=== PATIENT | female | born 1940 | race Caucasian/White ===

== ENCOUNTER 2024-08-06 11:01 | Emergency (ER) | payer OTHER, SELFPAY ==
[2024-08-06 11:05] VITALS: BP 115/96
[2024-08-06 11:29] LABS: COVID-19 Antigen Negative (Negative)
--- NOTE | 2024-08-06 11:55 | ED.GENMED ---
History of Present Illness
General
Chief Complaint: Cold/Flu/URI Symptoms
Source: patient
Exam Limitations: none
Time Seen by Provider: 08/06/24 11:54
Nursing documentation reviewed up to this point in time: agreed with
History of Present Illness
History of Present Illness:
84 yr old female brought to the ED by EMS for Evaluation. Son at bedside who reports patient lives alone however this morning when he talked to her patient was confused. Triage note mentions that family was concerned the patient was
hallucinating. Son reports she was not hallucinating she simply was confused and did not sound like herself. Son reports Pt functions well normally on her own. He reports pt started not feeling herself yesterday.
Patient presents to the ER awake alert she is aware that she started feeling not well yesterday. She described cold symptoms and believes she had a fever last night although she did not take her temperature. She admits to feeling a little confused
when she had a fever. She is awake alert she is not confused presently. She denies any shortness of breath. Upon my exam patient is asking to go home. She c/o of nasal congestion. She has mild cough denies any shortness of breath.
Review of Systems
Review of Systems
Allergies reviewed?: Yes
All Other Systems: ROS reviewed and negative except as documented in HPI and ROS
Constitutional: Reports fever
Respiratory: Reports cough
Cardiac: Reports no symptoms
ABD/GI: Reports no symptoms
: Reports no symptoms
Musculoskeletal: Reports no symptoms
Skin: Reports no symptoms
Neurological: Reports no symptoms
Psychiatric: Reports no symptoms
Phy Exam
General Physical Exam
General Presentation: no apparent distress
General age: appears stated age
General Skin: warm and dry
General Habitus: normal
General Mental: alert
General Hydration: appears well hydrated
Eye Exam
Eye Exam: PERRL and EOMI
Cardiovascular Exam
Cardiovascular Exam: regular rate/rhythm, no murmur and normal peripheral pulses
Pulmonary Exam
Pulmonary Exam: lungs clear and no respiratory distress
Gastrointestinal Exam
Gastrointestinal Exam: non tender and soft
Neurological Exam
Neurological Exam: alert, oriented x3, no motor deficits and normal reflexs
Musculoskeletal Exam
Musculoskeletal Exam: full ROM
Skin Exam
Skin Exam: normal color and warm/dry
Psychiatric Exam
Psychiatric Exam: normal mood/affect
Course
Orders/Labs/Results
Orders:
Orders
08/06/24 11:08
COVID-19 Antigen Urgent
Source: Nasal Swab
Influenza A+B Rapid Molecular Urgent
UMA Source: Nasal Swab
Specimen Description:
08/06/24 11:11
Electrocardiogram (*1) Urgent
Reason for Study: Shortness of Breath
EKG- Treatment ONCE
CXR2 [CR Chest - 2 Views ] Urgent
Comment:
Reason For Exam: cough
08/06/24 12:00
Cardiac Monitoring- Treatment ONCE
IV Insert/Care/Rem.- Treatment PRN
08/06/24 12:21
Complete Blood Count/With Diff Urgent
Comprehensive Metabolic Panel Urgent
08/06/24 13:19
Oseltamivir Phosphate [Tamiflu] 75 mg PO NOW STA
Abnormal Lab Results
08/06/24
12:21
RBC 3.90 L 10^6/uL
(4.20-5.40)
Hct 36.5 L %
(37.0-47.0)
MCH 31.5 H pg
(27.0-31.0)
Absolute Lymphs (auto) 0.8 L 10^3/uL
(1.2-3.4)
Neutrophils % 81.3 H %
(42.2-75.2)
Lymphocytes % 11.1 L %
(20.5-51.1)
BUN 22 H mg/dl
(7-17)
Creatinine 1.1 H mg/dL
(0.6-1.0)
Glucose 106 H mg/dl
(70-99)
AST 41 H U/L
(14-36)
08/06/24 12:21
08/06/24 12:21
Vital Signs
Initial and Last Documented VS:
Initial Vital Signs
Temp Pulse Resp BP Pulse Ox
99.3 F 83 18 115/96 96
08/06/24 11:05 08/06/24 11:05 08/06/24 11:05 08/06/24 11:05 08/06/24 11:05
Last Documented Vital Signs
Temp Pulse Resp BP Pulse Ox
99.3 F 75 24 138/57 98
08/06/24 11:05 08/06/24 13:30 08/06/24 13:30 08/06/24 13:00 08/06/24 13:30
Client Services Administrator consulted with Physician
Client Services Administrator consulted with physician?: Yes
Name of Physician Consulted: Thuy
MDM/Problems Addressed
MDM/Problems Addressed:
Patient is an 84-year-old female who was brought to the ER for evaluation. Family was concerned the patient seemed a little confused last night. Family reports he started not feeling well yesterday.
Patient however arrives awake alert she is aware that she felt a little confused when she reports she had a fever. She has since taken Tylenol. She complains about nasal congestion however feels well after go home. Patient presented awake alert
no acute distress no neurological deficits lungs clear not hypoxic temp is 99.3. White count normal hemoglobin stable at 12.3 creatinine 1.1. Patient is negative for COVID however flu positive negative pneumonia. Patient lives close to her son
who will be able to closely monitor her. Patient feels well after go home and is nontoxic she is not confused here. Stable for discharge home will give Tamiflu 30 mg twice daily due to creatinine clearance. d/c supportive care.
*Pulse Oximetry
Patient hypoxic: no
*EKG
Interpreted by ED Provider?: Yes
Interpretation: normal
Heart Rate: 86
Rate: normal
Rhythm: sinus
Ischemia: no ischemia
*Critical Care Note
Total Time (30-74mins, 75-104mins- exclusive of procedures): Not Applicable
ED Attending Note
-
Portions of this chart may have been created with voice recognition software.� Occasional wrong word or��sound alike� substitutions may have occurred due to the inherent limitations of voice recognition software.
Discharge Plan
Departure
Patient Disposition: Home (Routine Discharge)
Date of Disposition: 08/06/24
Time of Disposition: 13:48
Patient with high blood pressure during this ER visit?: Yes
Condition: Fair
Covid-19: Not Applicable
Discharge Problem:
Influenza A
Instructions: Flu in adults - Discharge instructions
Prescriptions:
New
oseltamivir [Tamiflu] 30 mg capsule
30 mg PO BID 5 Days Qty: 10 0RF
No Action
cilostazol 100 mg Tablet
100 mg PO BID
atenolol 100 mg Tablet
100 mg PO BID
simvastatin 10 mg Tablet
10 mg PO DAILY
clopidogrel 75 mg Tablet
75 mg PO DAILY
sertraline 25 mg Tablet
25 mg PO DAILY
Activity Restrictions/Additional Instructions:
As discussed be sure to stay well-hydrated and drink plenty of fluids. You may take Tylenol as needed for fever chills body aches. You are given 1 dose of Tamiflu 75 mg however a prescription for Tamiflu was sent to your pharmacy to take as
directed 30 mg twice a day for the next 5 days.
Follow-up with your family doctor in next several days and return if any worsening of symptoms.
Interventions
Interventions:
*Risk Screen - Suicide Last Done: 08/06/24 11:10
*General Assessment Last Done: 08/06/24 11:10
*Neglect/Abuse Screening Last Done: 08/06/24 11:10
ED- Fall Risk Assessment Last Done: 08/06/24 12:20
*ED COVID-19 Vaccine History Last Done: 08/06/24 11:10
*Nursing Disposition Last Done: 08/06/24 14:00
ED- Pulmonary Assessment Last Done: 08/06/24 12:20
Discharge Date and Time
Discharge Date/Time: 08/06/24 14:00
Print Language: NEPALESE
[2024-08-06 12:20] VITALS: BMI 29.5
[2024-08-06 12:21] VITALS: BP 144/61
[2024-08-06 12:32] LABS: % Basophils 0.4 % (0-2); % Immature Granulocytes 0.4 % (0-0.5); % Lymphocytes 11.1 % (20.5-51.1); % Monocytes 6.8 % (1.7-9.3); % Neutrophils 81.3 % (42.2-75.2); Absolute Lymphocytes 0.8 10^3/uL (1.2-3.4); Absolute Monocytes 0.5 10^3/uL (0.1-0.6); Absolute Neutrophils 6.1 10^3/uL (1.4-6.5); Hematocrit 36.5 % (37.0-47.0); Hemoglobin 12.3 g/dL (12.0-16.0); Mean Corp Hgb Conc. 33.7 g/dL (33.0-37.0); Mean Corpuscular Hgb 31.5 pg (27.0-31.0); Mean Corpuscular Volume 93.6 fL (81.0-99.0); Mean Platelet Volume 9.1 fL (7.4-10.4); Nucleated Red Blood Cells % 0 %; Platelet Count 264 10^3/uL (130-400); Red Cell Dist. Width 12.9 % (11.5-14.5); White Blood Cell Count 7.5 10^3/uL (4.8-10.8)
[2024-08-06 12:52] LABS: ALT (SGPT) 33 U/L (0-35); AST (SGOT) 41 U/L (14-36); Albumin 3.8 g/dl (3.5-5.0); Alkaline Phosphatase 68 U/L (38-126); Blood Urea Nitrogen 22 mg/dl (7-17); Calcium 8.4 mg/dl (8.4-10.2); Carbon Dioxide 25 mmol/L (22-30); Chloride 101 mmol/L (98-107); Estimated Creatinine Clearance 31 ml/min; Glucose 106 mg/dl (70-99); Potassium 3.5 mmol/L (3.5-5.1); Sodium 136 mmol/L (135-145); Total Bilirubin 0.5 mg/dl (0.2-1.3); Total Protein 6.5 g/dl (6.3-8.2); eGFR 49.24
[2024-08-06 13:00] VITALS: BP 138/57
[2024-08-06] MEDS: TAMIFLU 75 MG PO (13:30)
== END 2024-08-06 14:00 | disposition home or self-care (01) ==
LOC: EMR 11:01
PROVIDERS: Emergency Medicine; Nurse Practitioner; EMERGENCY PHYSICIAN Emergency Medicine; FAMILY PHYSICIAN Family Medicine
DX: J10.1 Influenza due to other identified influenza virus with other respiratory manifestations (principal); Z11.52 Encounter for screening for COVID-19; R03.0 Elevated blood-pressure reading, without diagnosis of hypertension
CPT/HCPCS: 99285; 71046; 80053; 85025; 87502; 87811; 93005

== ENCOUNTER → 2025-06-01 11:36 | Outpatient (REF) | payer OTHER, SELFPAY | LOC: MRI 3T 11:36 | PROVIDERS: ATTENDING PHYSICIAN Physician Assistant Surgical | DX: M25.562 Pain in left knee (principal) | CPT/HCPCS: 73721 ==